=== PATIENT | female | born 2000 | race Two or more races ===

== ENCOUNTER 2019-06-02 08:28 | Emergency (ER) | payer OTHER ==
[2019-06-02 10:18] VITALS: BP 112/62
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
== END 2019-06-02 10:19 | disposition home or self-care (01) ==
LOC: ER 08:28
DX: S16.1XXA Strain of muscle, fascia and tendon at neck level, initial encounter (principal); M54.9 Dorsalgia, unspecified; M79.10 Myalgia, unspecified site; V48.5XXA Car driver injured in noncollision transport accident in traffic accident, initial encounter
CPT/HCPCS: 99283